=== PATIENT | male | born 1980 | race Caucasian/White ===

== ENCOUNTER 2017-05-09 16:23 | Emergency (ER) | payer OTHER ==
[2017-05-09] MEDS ORDERED: KETOROLAC 60 MG/2 ML VIAL IVP STA (16:39)
[2017-05-09] MEDS ORDERED: diazePAM INJ 5 MG/ML SYRINGE IVP STA (16:39)
--- NOTE | 2017-05-09 16:42 | ED Physician Documentation ---
PD HPI BACK INJURY - Stated complaint Stated Complaint: BACK/GROIN PX - History obtained from History obtained from: Patient - History of Present Illness Location: Left (He's had left sided paralumbar back pain for the last 5 days which today radiated to the groin. It is worse with lifting and bending, but when it is bad he also feels restless. There is no associated fever, nausea. There was no specific injury, but he is in the process of fixing up a house to sell it. No saddle anesthesia or weakness, numbness, or tingling of the extremities.) Review of Systems Constitutional: denies: Fever, Chills GI: denies: Abdominal Pain, Nausea, Vomiting : denies: Dysuria, Frequency, Hematuria PD PAST MEDICAL HISTORY - Present Medications Home Medications: Ambulatory Orders Medication Instructions Recorded Confirmed Cyclobenzaprine [Flexeril] 05/09/17 Lidocaine Patch 5% [Lidoderm Patch] 1 each TOP DAILY #10 patch 05/09/17 Meloxicam [Mobic] 7.5 mg PO BIDWM PRN #15 tablet 05/09/17 diazePAM [Valium] 5 mg PO TID PRN #15 tablet 05/09/17 - Allergies Allergies/Adverse Reactions: Allergies Allergy/AdvReac Type Severity Reaction Status Date / Time No Known Drug Allergies Allergy Verified 05/09/17 16:43 PD ED PE NORMAL - Vitals Vital signs reviewed: Yes - General General: Alert and oriented X 3, Other (winces with motion) - Cardiac Cardiac: RRR, No murmur - Respiratory Respiratory: No respiratory distress, Clear bilaterally - Abdomen Abdomen: Non tender - Back Back: No spinal TTP, Other (The patient has equal and normal patellar and Achilles reflexes bilaterally. Normal sensation in all areas of the legs. Patient denies saddle anesthesia. Normal strength in flexion and extension at the ankles, knees and flexion of the hips.) - Neuro Neuro: Alert and oriented X 3, Normal speech - Psych Psych: Normal mood, Normal affect Results - Vitals Vitals: Vital Signs - 24 hr 05/09/17 16:40 Temperature 36.2 C L Heart Rate 90 Respiratory 18 Rate Blood Pressure 164/104 H O2 Saturation 100 Oxygen O2 Source Room air - Labs Labs: Laboratory Tests 05/09/17 05/09/17 05/09/17 16:54 16:54 17:00 WBC 7.7 RBC 5.12 Hgb 15.0 Hct 43.5 MCV 85.1 MCH 29.4 MCHC 34.5 RDW 13.0 Plt Count 169 MPV 9.6 Neut # 5.2 Lymph # 1.7 Sequoyah # 0.5 Eos # 0.2 Baso # 0.1 Absolute Nucleated RBC 0.00 Nucleated RBCs 0.0 Sodium 137 Potassium 3.6 Chloride 101 Carbon Dioxide 27 Anion Gap 9.0 BUN 17 Creatinine 1.0 Estimated GFR (MDRD) 85 L Glucose 95 Calcium 9.6 Urine Color YELLOW Urine Clarity CLEAR Urine pH 6.5 Ur Specific [place] 1.020 Urine Protein NEGATIVE Urine Glucose (UA) NEGATIVE Urine Ketones NEGATIVE Urine Occult Blood NEGATIVE Urine Nitrite NEGATIVE Urine Bilirubin NEGATIVE Urine Urobilinogen 0.2 (NORMAL) Ur Leukocyte Esterase NEGATIVE Ur Microscopic Review NOT INDICATED Urine Culture Comments NOT INDICATED PD MEDICAL DECISION MAKING - ED course ED course: Spinal epidural abscess was considered in this patient. The patient has no fever , is not diabetic, has no spinal tenderness, does not use IV drugs, and no bilateral neurologic symptoms. Therefore, spinal epidural abscess is considered exceedingly unlikely. Renal colic was also considered, some of the location of the pain and some of the description was consistent with that, but he has no hematuria. Feeling better and requesting discharge after Toradol and Valium IV. Departure - Departure Disposition: 01 Home, Self Care Clinical Impression: Back spasm Condition: Good Record reviewed to determine appropriate education?: Yes Instructions: ED Low Back Pain Injury Prescriptions: Lidocaine Patch 5% [Lidoderm Patch] 1 each TOP DAILY #10 patch Meloxicam [Mobic] 7.5 mg PO BIDWM PRN #15 tablet PRN Reason: Pain diazePAM [Valium] 5 mg PO TID PRN #15 tablet PRN Reason: Spasms Comments: Call your doctor to arrange a follow up appointment. Make the next available appointment. In the interim return anytime if worse or if new symptoms develop. Your blood pressure was elevated today on check in to the emergency department. This does not mean that you have hypertension, it is a common phenomenon to check into the emergency department and have elevated blood pressure. I recommend that you see your primary care physician within the week to have it rechecked when you're feeling better.
[2017-05-09] MEDS ORDERED: diazePAM INJ 5 MG/ML SYRINGE ONE (16:55)
[2017-05-09] MEDS ORDERED: KETOROLAC 30 MG/ML VIAL ONE (16:55)
[2017-05-09 17:01] LABS: BASOPHILS # (AUTO) 0.1 10^3/uL (0.0-0.1); BASOPHILS % (AUTO) 0.7 %; EOSINOPHILS # (AUTO) 0.2 10^3/uL (0.0-0.7); EOSINOPHILS % (AUTO) 2.6 %; HCT - HEMATOCRIT 43.5 % (42.0-52.0); LYMPHOCYTES # (AUTO) 1.7 10^3/uL (1.5-3.5); LYMPHOCYTES % (AUTO) 22.4 %; MEAN CORPUSCULAR HEMOGLOBIN 29.4 pg (27.0-31.0); MEAN CORPUSCULAR HGB CONC 34.5 g/dL (32.0-36.0); MEAN CORPUSCULAR VOLUME 85.1 fL (80.0-94.0); MEAN PLATELET VOLUME 9.6 fL (7.4-11.4); MONOCYTES # (AUTO) 0.5 10^3/uL (0.0-1.0); MONOCYTES % (AUTO) 6.5 %; NEUTROPHILS # (AUTO) 5.2 10^3/uL (1.5-6.6); NEUTROPHILS % (AUTO) 67.8 %; RED BLOOD COUNT 5.12 10^6/uL (4.70-6.10); UNCORRECTED WHITE BLOOD COUNT 7.7 x10^3/uL; WHITE BLOOD COUNT 7.7 x10^3/uL (4.8-10.8)
[2017-05-09 17:10] LABS: CALCIUM 9.6 mg/dL (8.5-10.3); POTASSIUM 3.6 mmol/L (3.5-5.0)
[2017-05-09 17:11] LABS: BILIRUBIN,URINE NEGATIVE (NEGATIVE); PH,URINE 6.5 PH (5.0-7.5)
[2017-05-09 17:13] LABS: UA CHARGE (STRIP ONLY) YES; UR CULTURE IF IND NOT INDICATED
[2017-05-09 17:29] VITALS: BP 131/84
== END 2017-05-09 17:34 | disposition home or self-care (01) ==
LOC: ED 16:23
DX: M62.830 Muscle spasm of back (principal); M54.5 Low back pain; R03.0 Elevated blood-pressure reading, without diagnosis of hypertension
CPT/HCPCS: 36415; 80048; 81001; 81003; 85025; 87086; 96374; 96375; 99283

== ENCOUNTER 2023-05-16 10:29 | Outpatient (CLI) | payer OTHER ==
[2023-05-16 18:41] LABS: BASOPHILS % (AUTO) 0.2 %; EOSINOPHILS % (AUTO) 0.5 %; HCT - HEMATOCRIT 43.5 % (42.0-52.0); HGB - HEMOGLOBIN 14.2 g/dL (14.0-18.0); LYMPHOCYTES % (AUTO) 31.6 %; MEAN CORPUSCULAR HEMOGLOBIN 28.5 pg (27.0-31.0); MEAN CORPUSCULAR HGB CONC 32.6 g/dL (32.0-36.0); MEAN CORPUSCULAR VOLUME 87.3 fL (80.0-94.0); MEAN PLATELET VOLUME 11.5 fL (7.4-11.4); MONOCYTES % (AUTO) 14.7 %; NEUTROPHILS % (AUTO) 52.5 %; PLT - PLATELET COUNT 183 10^3/uL (130-450); RED BLOOD COUNT 4.98 10^6/uL (4.70-6.10); RED CELL DISTRIBUTION WIDTH 12.4 % (12.0-15.0); WHITE BLOOD COUNT 4.3 x10^3/uL (4.8-10.8)
[2023-05-16 18:53] LABS: ABNORMAL LYMPHS % (MANUAL) 0 %
[2023-05-16 19:29] LABS: ALBUMIN 3.8 g/dL (3.2-5.5); ALBUMIN/GLOBULIN RATIO 1.1 (1.0-2.2); BILIRUBIN,TOTAL 0.6 mg/dL (0.2-1.0); CALCIUM 8.5 mg/dL (8.5-10.3); CRP - C-REACTIVE PROTEIN 9.2 mg/dL (0-1.0); POTASSIUM 4.1 mmol/L (3.5-5.0); TOTAL PROTEIN 7.2 g/dL (6.7-8.2)
[2023-05-16 19:34] LABS: THYROID STIMULATING HORMONE 2.41 uIU/mL (0.34-5.60)
[2023-05-16 19:42] LABS: BAND NEUTROPHILS % (MANUAL) 9 %; DIFFERENTIAL COMMENT MANUAL DIFFERENTIAL; LYMPHOCYTES # (MANUAL) 1.5 10^3/uL (1.5-3.5); LYMPHOCYTES % (MANUAL) 17 %; MONOCYTES # (MANUAL) 0.5 10^3/uL (0.0-1.0); NEUTROPHILS # (MANUAL) 2.2 10^3/uL (1.5-6.6); PLATELET ESTIMATE, MANUAL NORMAL (130-450,000) (NORMAL); PLATELET MORPHOLOGY NORMAL APPEARANCE (NORMAL); RBC MORPHOLOGY (MULTIPLE) NORMAL APPEARANCE (NORMAL); REACTIVE LYMPHS % (MANUAL) 18 %
== END 2023-05-16 10:30 | disposition home or self-care (01) ==
LOC: LAB.N 10:29
PROVIDERS: ATTEND Registered Nurse
DX: R53.83 Other fatigue (principal); R50.9 Fever, unspecified
CPT/HCPCS: 36415; 80050; 86140

== ENCOUNTER 2023-05-16 10:40 | Outpatient (CLI) | payer OTHER ==
--- NOTE | 2023-05-16 15:15 | XRAY Report ---
PROCEDURE: Chest 2 View X-Ray INDICATIONS: FATIGUE FEVER TECHNIQUE: 2 views of the chest were acquired. COMPARISON: None. FINDINGS: Surgical changes and devices: None. Lungs and pleura: No pleural effusions or pneumothorax. Lungs are clear. Mediastinum: Mediastinal contours appear normal. Heart size is normal. Bones and chest wall: No suspicious bony lesions. Overlying soft tissues appear unremarkable. IMPRESSION: No acute cardiopulmonary abnormality. Reviewed by: Alfonso Pisano on 05/16/2023 3:14 PM PDT Approved by: lAfonso Pisano on 05/16/2023 3:14 PM PDT Station ID: [id number]
== END 2023-05-16 10:41 | disposition home or self-care (01) ==
LOC: DI.N 10:40
PROVIDERS: ATTEND Registered Nurse
DX: R53.83 Other fatigue (principal); R50.9 Fever, unspecified
CPT/HCPCS: 36415; 80050; 86140